=== PATIENT | female | born 1950 | race Two or more races ===

== ENCOUNTER 2020-01-29 07:11 | Emergency (ER) | payer OTHER ==
[~2020-01-29] VITALS: Ht 172.7 cm; Wt 100.0 kg
[2020-01-29] MEDS ORDERED: LATA7.5D OU (07:42)
[2020-01-29] MEDS ORDERED: POLY17PO PO (07:42)
[2020-01-29] MEDS ORDERED: INSREG SQ ×2 (07:42)
[2020-01-29] MEDS ORDERED: ATOR40TA28 PO (07:42)
[2020-01-29] MEDS ORDERED: INSNPH SQ ×2 (07:42)
[2020-01-29] MEDS ORDERED: ASPI-728 PO (07:42)
[2020-01-29] MEDS ORDERED: BUPR100SR PO (07:42)
[2020-01-29] MEDS ORDERED: PANT40TA25 PO (07:42)
[2020-01-29] MEDS ORDERED: IPRA4AER IH (07:42)
[2020-01-29 07:54] LABS: BASOPHILS % (AUTO) 0.5 % (0.0-2.0); EOSINOPHILS % (AUTO) 4.8 % (1.0-6.0); HEMATOCRIT 38.1 % (36-46); HEMOGLOBIN 12.6 g/dL (12.0-16.0); LYMPHOCYTES # (AUTO) 0.8 K/uL (1.0-4.8); LYMPHOCYTES % (AUTO) 11.2 % (22.0-44.0); MEAN CORPUSCULAR HEMOGLOBIN 29.3 pg (26.0-34.0); MEAN CORPUSCULAR HGB CONC 33.1 G/dL (31.0-37.0); MEAN CORPUSCULAR VOLUME 88 fL (80-100); MONOCYTES # (AUTO) 0.4 K/uL (0.1-1.0); MONOCYTES % (AUTO) 6.1 % (2.0-9.0); NEUTROPHILS # (AUTO) 5.3 K/uL (1.8-7.7); NEUTROPHILS % (AUTO) 77.4 % (40.0-70.0); PLATELET COUNT (AUTO) 217 K/uL (150-450); RED BLOOD CELL COUNT(AUTO) 4.31 MIL/uL (4.00-5.20); RED CELL DISTRIBUTION WIDTH 13.8 % (11.5-14.5)
[2020-01-29 08:03] LABS: CALCIUM, TOTAL 9.2 mg/dL (8.8-10.5); CREATININE 1.28 mg/dL (0.60-1.30); POTASSIUM 3.7 mmol/L (3.5-5.1)
[2020-01-29 08:09] LABS: ALBUMIN 2.3 g/dL (3.4-5.0); BILIRUBIN,TOTAL 0.3 mg/dL (0.1-1.0); TOTAL PROTEIN, SERUM 6.8 g/dL (6.4-8.2)
[2020-01-29] MEDS ORDERED: ASPIRIN 81 MG CHEWABLE TABLET PO ONE (08:15)
[2020-01-29] MEDS ORDERED: LORazepam 2 MG/ML VIAL IVP ONE (09:30)
[2020-01-29 10:36] VITALS: BP 167/65
== END 2020-01-29 11:00 | disposition short-term general hospital (02) ==
LOC: EMS 07:14
DX: R07.89 Other chest pain (principal); R60.0 Localized edema; E44.0 Moderate protein-calorie malnutrition; F03.90 Unspecified dementia, unspecified severity, without behavioral disturbance, psychotic disturbance, mood disturbance, and anxiety; E11.9 Type 2 diabetes mellitus without complications; K21.9 Gastro-esophageal reflux disease without esophagitis; I11.9 Hypertensive heart disease without heart failure; E78.00 Pure hypercholesterolemia, unspecified; Z68.33 Body mass index [BMI] 33.0-33.9, adult; Z79.4 Long term (current) use of insulin; Z79.82 Long term (current) use of aspirin; Z88.1 Allergy status to other antibiotic agents; Z88.5 Allergy status to narcotic agent; Z88.0 Allergy status to penicillin; Z88.8 Allergy status to other drugs, medicaments and biological substances
CPT/HCPCS: 36415; 71045; 80053; 82140; 83690; 84484; 85025; 93005; 96374; 99285; J2060